=== PATIENT | female | born 1955 | race Caucasian/White ===

== ENCOUNTER → 2017-03-02 | Outpatient (CLI) | payer BC ==
[~2017-03-02] MED LIST: ADVIL200 MG PO; ALEVE 220MG220 MG; ASPIRIN 81M81 MG/TA2 PO; CALCIUM600 M2; CEPHALEXIN500 M1 PO; COZAAR 50MG50 MG/TAB PO; GLUCOSAMINE CHO1 CAP PO; LORTAB 5/500 501 TAB PO; MULTIPLE VITAMI1 CAP PO; PRILOTC; ZESTRIL 10MG10 MG PO
== END ==
LOC: MC.RAD 07:00
DX: Z12.31 Encounter for screening mammogram for malignant neoplasm of breast (principal)

== ENCOUNTER → 2018-05-09 | Outpatient (CLI) | payer BC | LOC: MC.RAD 13:15 | DX: Z12.31 Encounter for screening mammogram for malignant neoplasm of breast (principal) ==

== ENCOUNTER → 2019-05-11 | Outpatient (CLI) | payer BC | LOC: MC.RAD 07:00 | DX: Z12.31 Encounter for screening mammogram for malignant neoplasm of breast (principal) ==

== ENCOUNTER → 2020-05-04 | Day surgery (SDC) | payer BC ==
--- NOTE | 2020-05-04 13:27 | NUR ---
1200-Pt in PACU for blood patch per anesthesia, Dirk. 1220-blood patch complete. Pt resting supine with pillow under head for comfort. Friend at bedside. Pt stating that she feels her headache is starting to let up. 1240-Pt sipping on water. States that she is feeling "pretty good". 1327-PT ambulates to with assist. Pt continues to sip on water reporting that her headache is now gone and she is feeling much better. Pt discharged per wheelchair to ER exit and assited into passanger side of vehicle.
== END ==
LOC: COL.ER 11:36 → SDCO 11:36
DX: G97.1 Other reaction to spinal and lumbar puncture (principal)

== ENCOUNTER → 2020-07-08 | Outpatient (CLI) | payer BC | LOC: MC.RAD 05-30 07:00 | DX: Z12.31 Encounter for screening mammogram for malignant neoplasm of breast (principal) ==

== ENCOUNTER → 2021-07-10 | Outpatient (CLI) | payer BC | LOC: MC.RAD 06:56 | DX: Z12.31 Encounter for screening mammogram for malignant neoplasm of breast (principal) ==